=== PATIENT | female | born 1955 | race Asian ===

== ENCOUNTER → 2021-11-01 09:44 | Outpatient (CLI) | payer MEDICARE, SELFPAY ==
--- NOTE | 2021-11-01 09:53 | DI.NM.S_ITS ---
PROCEDURE: NM ROMIE PERF SPECT REST & STR Rest and exercise myocardial perfusion SPECT with gated imaging and ejection fraction RADIOPHARMACEUTICAL: 11.6 mCi Tc-99m sestamibi IV at rest and 25.1 mCi Tc-99m sestamibi IV at peak exercise. A [id number] was performed. INDICATIONS: Chest pain, unspecified TECHNIQUE: Radiopharmaceutical was injected at peak stress test, and also at rest. SPECT images were obtained. SPECT myocardial perfusion images were displayed in short axis, horizontal long axis, and vertical long axis views. Gated images were reviewed using [email or web address] software. COMPARISON: None. CARDIAC STRESS: A standard Juan Manuel treadmill exercise tolerance test was performed by the patient under the supervision of an attending staff. The patient exercised for 6 minutes and 31 seconds; 7.0 METS; functional aerobic impairment (KILO) is -3% %. Hemodynamic data: There is normal blood pressure and heart rate response to exercise stress. Patient achieved 91% of maximum predicted heart rate at peak exercise. Maximum blood pressure 160/60. Symptoms: Patient denied chest pain during exercise. EKG: No diagnostic EKG changes of ischemia; no ectopy. FINDINGS: Raw data: There is good myocardial labeling by radiotracer. No significant motion artifacts. Anwz-ic-xggju ratio is 0.29 (normal is less than 0.38 for sestamibi tracer, and less than 0.50 for thallium tracer). Left ventricle function: Gated images demonstrate normal left ventricle wall thickening. No segmental wall motion abnormality. No transient ischemic dilation; TID is 0.85 (normal less than 1.3). The left ventricle resting end-diastolic volume is 51 mL. Left ventricle stress ejection fraction is >75% ; normal values are above 45%. Myocardial perfusion: There is normal distribution of activity in the left and right ventricular myocardium. No fixed or reversible perfusion defects. IMPRESSION: 1. No evidence of exercise-induced ischemia on ECG or SPECT imaging. 2. Normal exercise capacity. 3. Normal blood pressure response to exercise Dictated by: Sanjuana Limon D.O. on 11/01/2021 at 16:23 Approved by: Sanjuana Limon M.D. on 11/01/2021 at 16:27
[2021-11-01 11:00] LABS: COVID19 -Nasal RAPID Negative (Negative)
== END ==
PROVIDERS: Family Provider Internal Medicine Geriatric Medicine; PCP Internal Medicine; Referring Provider Internal Medicine; Visit Provider Internal Medicine
DX: R07.9 Chest pain, unspecified (principal); Z20.822 Contact with and (suspected) exposure to COVID-19
CPT/HCPCS: 78452; 87635; 93017; A9502

== ENCOUNTER → 2021-11-07 15:01 | Outpatient (CLI) | payer MEDICARE, OTHER, SELFPAY | PROVIDERS: Family Provider Internal Medicine Geriatric Medicine; PCP Internal Medicine; Referring Provider Internal Medicine; Visit Provider Internal Medicine | DX: Z78.0 Asymptomatic menopausal state (principal); M85.88 Other specified disorders of bone density and structure, other site; E07.9 Disorder of thyroid, unspecified; Z82.62 Family history of osteoporosis | CPT/HCPCS: 77080 ==

== ENCOUNTER 2022-03-07 12:28 | Emergency (ER) | payer MEDICARE, SELFPAY ==
[2022-03-07 12:34] VITALS: BP 133/75; PULSE 81; RESP 14; TEMP 36.7; O2SAT 99; BMI 25.1
[2022-03-07 13:01] LABS: Add Manual Diff / Slide Review NO; Basophils Absolute Auto 0 /uL (0-100); Basophils Percent Auto 0.3 % (0-2); Eosinophils Absolute Auto 100 /uL (0-450); Eosinophils Percent Auto 0.8 % (2-4); Hematocrit 40.2 % (36-46); Hemoglobin 13.3 g/dL (12.0-16.0); Lymphocytes Absolute Auto 2200 /uL (1100-4500); Lymphocytes Percent Auto 22.7 % (25-40); Mean Corpuscular HGB Conc 33.2 % (30-36); Mean Corpuscular Hemoglobin 32.6 PG (26-34); Mean Corpuscular Volume 98.2 fL (80-100); Monocytes Absolute Auto 500 /uL (0-900); Monocytes Percent Auto 4.7 % (3-14); Neutrophils Absolute Auto 7000 /uL (1500-7000); Neutrophils Percent Auto 71.5 % (50-75); Platelet Count 262 X10^3/uL (150-400); Red Cell Distribution Width 13.4 % (11.6-14.8); White Blood Cell Count 9.8 X10^3/uL (4.5-11.0)
[2022-03-07 13:04] LABS: Alanine Aminotransferase 27 IU/L (<35); Albumin 4.4 g/dL (3.5-5.0); Albumin Globulin Ratio 1.4 (1.0-2.8); Alkaline Phosphatase 89 U/L (38-126); Aspartate Aminotransferase 52 IU/L (14-36); BUN Creatinine Ratio 22.4 (6-22); Bilirubin Total 0.9 mg/dL (0.2-1.3); Blood Urea Nitrogen 13 mg/dL (7-17); Carbon Dioxide 26 mmol/L (22-32); Chloride 107 mmol/L (98-107); Estimated Glomerular Filt Rate > 60 mL/min (>60); Globulin 3.2 g/dL (1.7-4.1); Glucose 103 mg/dL (80-110); HEMOLYSIS < 15 (0-50); Lipase 100 U/L (23-300); Sodium 139 mmol/L (137-145); Total Protein 7.6 g/dL (6.3-8.2)
--- NOTE | 2022-03-07 13:43 | ED_ITS ---
HPI - Abdominal Pain <MIKAYLA Wilks - Last Filed: 03/07/22 13:54> General Chief Complaint: Abdominal Pain Stated Complaint: Abd pain Time Seen by Provider: 03/07/22 13:11 Source: patient Mode of arrival: Ambulatory History of Present Illness HPI narrative: 66-year-old female presents to the emergency department complaining of abdominal distension and discomfort that comes and goes for the last 2 days. Patient states that she was on a latter day retreat over the weekend, 8 3 or 4 times a day and this is much greater than her usual of 1 time or 2 times a day and less quantity. Patient states her normal diet is very healthy with lots of fresh foods. She states she ate a lot of fried foods and has had abdominal bloating and discomfort in the lower part of her abdomen. She states that she had 3 bowel movements yesterday, they were all normal without blood or diarrhea. She has not had any nausea or vomiting, fever, chest pain, shortness of breath, dizziness, back pain, dysuria, headache, cough or congestion. She denies any other symptoms other than abdominal discomfort that comes and goes with bloating. She states she has not had a bowel movement today but she has gurgling in her abdomen. She states that she feels like she has a lot of stool still and she has passed some gas. Related Data Home Medications Medication Instructions Recorded Confirmed coQ10 (ubiquinol) PO 05/15/18 05/15/18 krill oil 1,000 mg-om3 130 mg-dha cap PO cap 05/15/18 05/15/18 40 mg-epa 80 sx-mi0-wgm-astax cap (Krill Oil ([place] 3 and 6)) levothyroxine 25 mcg tablet 25 mcg PO DAILY 05/15/18 05/15/18 (Levoxyl) multivitamin 1 tab PO DAILY 05/15/18 05/15/18 Previous Rx's Medication Instructions Recorded hydrocortisone 2.5 % topical 1 applictn TOP BID PRN #20 gram 05/15/18 ointment Allergies Allergy/AdvReac Type Severity Reaction Status Date / Time niacin [NIACIN] Allergy Unknown Verified 03/07/22 12:35 Review of Systems <MIKAYLA Wilks - Last Filed: 03/07/22 13:54> Review of Systems Narrative: General: denies fever, chills, malaise, sweats, fatigue Head/Neck: denies headache, neck pain, dizziness Eyes: denies visual changes, eye pain Cardio: denies chest pain, palpitations, edema Respiratory: denies dyspnea, cough, orthopnea GI: Endorses abdominal distension and bloating, denies any nausea, vomiting, or diarrhea : denies dysuria, hematuria, urinary retention, frequency or incontinence MSK: denies joint pain, muscle weakness Skin: denies rash, itching, skin lesions or other Neuro: denies numbness, tingling Patient History <MIKAYLA Wilks - Last Filed: 03/07/22 13:54> Social History Smoking Status: Never smoker Smoking Status: Never smoker alcohol intake frequency: holidays/special occasions only Substance Use Type: does not use Exam <MIKAYLA Wilks - Last Filed: 03/07/22 13:54> Narrative Exam Narrative: Independently reviewed vitals signs and nursing notes. General: cooperative, comfortable, in no acute distress, well developed and well groomed Head: symmetrical facial expressions Neck: supple, without lymphadenopathy. Eyes: pupils equal round and reactive, EOMI, conjunctiva normal Nose: nares patent, no rhinorrhea Mouth/Throat: uvula midline, moist mucus membranes Cardiovascular: regular rate and rhythm, no peripheral edema, warm extremities Respiratory: normal effort, able to speak in complete sentences, no audible wheezing, stridor, or rales. No retractions or tachypnea. GI: abdomen soft, nontender to palpation, mildly distended, no masses, no exquisite tenderness with exam, without guarding or rebound. Bowel sounds present x4 quadrants not hypo or hyper active, normal tones. No CVA tenderness MSK: moves all extremities, ambulatory w/steady gait, neurovascularly intact, no weakness Skin: brisk capillary refill, no rash, no erythema Neuro: normal speech and cognition, A&O x3, normal tone Psych: mental status is grossly normal, congruent mood, normal affect, pleasant and cooperative Initial Vital Signs Initial Vital Signs: Vital Signs Temperature 98.1 F 03/07/22 12:34 Pulse Rate 81 03/07/22 12:34 Respiratory Rate 14 03/07/22 12:34 Blood Pressure 133/75 03/07/22 12:34 Pulse Oximetry 99 03/07/22 12:34 <Jonny Navas DO - Last Filed: 03/07/22 14:02> Initial Vital Signs Initial Vital Signs: Vital Signs Temperature 98.1 F 03/07/22 12:34 Pulse Rate 81 03/07/22 12:34 Respiratory Rate 14 03/07/22 12:34 Blood Pressure 133/75 03/07/22 12:34 Pulse Oximetry 99 03/07/22 12:34 Course <MIKAYLA Wilks - Last Filed: 03/07/22 13:54> Orders Ordered: ED Orders 03/07/22 12:38 EKG-12 Lead Stat 03/07/22 12:46 Complete Blood Count AUTO DIFF Stat Comprehensive Metabolic Panel Stat Lipase Stat Vital Signs Vital signs: Vital Signs - 8 hr 03/07/22 12:34 Temperature 98.1 F Pulse Rate 81 Respiratory Rate 14 Blood Pressure 133/75 Pulse Oximetry 99 <Jonny Navas DO - Last Filed: 03/07/22 14:02> Orders Ordered: ED Orders 03/07/22 12:38 EKG-12 Lead Stat 03/07/22 12:46 Complete Blood Count AUTO DIFF Stat Comprehensive Metabolic Panel Stat Lipase Stat Vital Signs Vital signs: Vital Signs - 8 hr 03/07/22 12:34 Temperature 98.1 F Pulse Rate 81 Respiratory Rate 14 Blood Pressure 133/75 Pulse Oximetry 99 MDM - Abdominal Pain <MIKAYLA Wilks - Last Filed: 03/07/22 13:54> Lab Data Result diagrams: 03/07/22 12:46 03/07/22 12:46 Labs: Lab Results 03/07/22 03/07/22 Range/Units 12:46 12:46 WBC 9.8 (4.5-11.0) X10^3/uL RBC 4.10 (4.0-5.2) X10^6/uL Hgb 13.3 (12.0-16.0) g/dL Hct 40.2 (36-46) % MCV 98.2 (80-100) fL MCH 32.6 (26-34) PG MCHC 33.2 (30-36) % RDW 13.4 (11.6-14.8) % Plt Count 262 (150-400) X10^3/uL Neut % (Auto) 71.5 (50-75) % Lymph % (Auto) 22.7 L (25-40) % [place] % (Auto) 4.7 (3-14) % Eos % (Auto) 0.8 L (2-4) % Baso % (Auto) 0.3 (0-2) % Neut # (Auto) 7000 (3516-7539) /uL Lymph # (Auto) 2200 (4668-2358) /uL [place] # (Auto) 500 (0-900) /uL Eos # (Auto) 100 (0-450) /uL Baso # (Auto) 0 (0-100) /uL Sodium 139 (137-145) mmol/L Potassium 4.0 (3.4-5.1) mmol/L Chloride 107 (98-107) mmol/L Carbon Dioxide 26 (22-32) mmol/L BUN 13 (7-17) mg/dL Creatinine 0.58 (0.52-1.04) mg/dL Estimated GFR > 60 (>60) mL/min BUN/Creatinine Ratio 22.4 H (6-22) Glucose 103 (80-110) mg/dL Calcium 9.0 (8.4-10.2) mg/dL Total Bilirubin 0.9 (0.2-1.3) mg/dL AST 52 H (14-36) IU/L ALT 27 (<35) IU/L Alkaline Phosphatase 89 (38-126) U/L Total Protein 7.6 (6.3-8.2) g/dL Albumin 4.4 (3.5-5.0) g/dL Globulin 3.2 (1.7-4.1) g/dL Albumin/Globulin Ratio 1.4 (1.0-2.8) Lipase 100 (23-300) U/L ECG Data Interpretation: EKG independently reviewed by myself and Dr. Navas reveals normal sinus rhythm at 74 bpm with regular axis and intervals. No STEMI, ST segment changes, arrhythmia, or acute ischemic changes. MDM Narrative Medical decision making narrative: This is a 66-year-old female presents to the emergency department complaining of abdominal distension and bloating after a weekend of eating a lot more food than usual on a retreat. Patient states that she ate 4 times a day, she is not used to eating as much food, and the quality of food was poor in quality, lots of fried and processed foods. She states that her baseline is 1 meal a day and it is usually healthy with loss of fresh plans. She denies any nausea vomiting, fever, diarrhea. She states that she had 3 bowel movements yesterday, has not had a bowel movement yet today but has abdominal discomfort and bloating. She does not have any blood in her stool, denies any dysuria or flank pain. She has not had any chills, chest pain, shortness of breath. Patient has bowel tones x4 quadrants, EKG without any ST changes or arrhythmia. She is tolerating p.o. without signs of dehydration, no tachycardia, she tachypnea, she is afebrile. Patient has passed some gas this morning, states that her pain has come and gone today in her lower abdomen. This is most likely gas pain, or stool burden with peristalsis. Patient was given strict return precautions, encouraged to stay stay hydrated, increase her activity, avoid medications that would further constipate her, incorporate fresh fruits and vegetables and fiber into her diet. Patient was recommended to follow-up closely with her primary care provider, schedule her colonoscopy as she is overdue. Her lab work is unremarkable, she was nontender to palpation over her 4 quadrants her abdomen. No peritoneal signs on abdominal exam. Patient remains p.o. tolerant. Serial abdominal exam without increase in abdominal pain. Given history and exam, low suspicion for acute abdominal process, such as acute cholecystitis, pancreatitis, perforated viscus, atypical appendicitis, colitis, diverticulitis or torsion. Extensive conversation about ER return precautions and need for close follow-up. Patient is appropriate and amenable to discharge home. Vital signs are stable on repeat examination is unremarkable. Patient has been informed of results. Patient has been given strict return to ER precautions for any new or worsening symptoms. Patient understands to follow up closely with outpatient providers as instructed. Patient understands plan and agrees to discharge home. All questions and concerns answered at this time. <Jonny Navas, DO - Last Filed: 03/07/22 14:02> Lab Data Labs: Lab Results 03/07/22 03/07/22 Range/Units 12:46 12:46 WBC 9.8 (4.5-11.0) X10^3/uL RBC 4.10 (4.0-5.2) X10^6/uL Hgb 13.3 (12.0-16.0) g/dL Hct 40.2 (36-46) % MCV 98.2 (80-100) fL MCH 32.6 (26-34) PG MCHC 33.2 (30-36) % RDW 13.4 (11.6-14.8) % Plt Count 262 (150-400) X10^3/uL Neut % (Auto) 71.5 (50-75) % Lymph % (Auto) 22.7 L (25-40) % [place] % (Auto) 4.7 (3-14) % Eos % (Auto) 0.8 L (2-4) % Baso % (Auto) 0.3 (0-2) % Neut # (Auto) 7000 (0132-0009) /uL Lymph # (Auto) 2200 (5567-9546) /uL [place] # (Auto) 500 (0-900) /uL Eos # (Auto) 100 (0-450) /uL Baso # (Auto) 0 (0-100) /uL Sodium 139 (137-145) mmol/L Potassium 4.0 (3.4-5.1) mmol/L Chloride 107 (98-107) mmol/L Carbon Dioxide 26 (22-32) mmol/L BUN 13 (7-17) mg/dL Creatinine 0.58 (0.52-1.04) mg/dL Estimated GFR > 60 (>60) mL/min BUN/Creatinine Ratio 22.4 H (6-22) Glucose 103 (80-110) mg/dL Calcium 9.0 (8.4-10.2) mg/dL Total Bilirubin 0.9 (0.2-1.3) mg/dL AST 52 H (14-36) IU/L ALT 27 (<35) IU/L Alkaline Phosphatase 89 (38-126) U/L Total Protein 7.6 (6.3-8.2) g/dL Albumin 4.4 (3.5-5.0) g/dL Globulin 3.2 (1.7-4.1) g/dL Albumin/Globulin Ratio 1.4 (1.0-2.8) Lipase 100 (23-300) U/L Discharge Plan Departure Patient Disposition: Home Clinical Impression: Abdominal bloating Instructions: Avoiding Gas-producing Foods, Constipation, Gassy Foods Diet Activity Restrictions/Additional Instructions: *You have been diagnosed with abdominal distension and bloating from a change in diet and eating more food than usual. Please try and stay hydrated, active, and incorporate fresh fruits and vegetables with plenty of fiber in your diet to continue having regular step stools. Because the quality of foods that you 8 was not the same quality you are use 2, it is easy to have a lot of stool buildup in your colon and have gas pain afterwards. If you have not had a bowel movement in 1 or 2 days, it is safe to use Dulcolax or MiraLax to help soften your stool and encourage a bowel movement. If you have worsening pain, any vomiting, or unable to have any bowel movements for multiple days, please return to the emergency department for another evaluation. Otherwise please follow-up with Dr. Ward for your next colonoscopy. Thank you for trusting us with your care I hope that you feel better soon *What to do: *Please continue to take your regular medications as directed. [ ] New medication prescriptions sent to your pharmacy: [ ] [ ] New medication written as a paper prescription [ x] No new medications given *Please follow up with your primary care provider in 2-3 days, call for an appointment. Let them know you were seen in the Emergency Department and that we asked that you be seen for follow-up. We will electronically transmit a record of today's note if your PCP is in our system *If you do not have a primary care provider please contact [phone] to establish care with one of the [facility] primary care providers. *Return to Emergency Department if you should have any new, worsening or concerning symptoms, such as [fever greater than 101F, chills, worsening pain, persistent vomiting or other bothersome symptoms] Prescriptions: No Action levothyroxine [Levoxyl] 25 mcg tablet 25 mcg PO DAILY 0RF [id number]-astx [Krill Oil ([place] 3 and 6)] 1000-130(40-80) mg capsule PO 0RF coQ10 (ubiquinol) PO 0RF multivitamin tablet 1 tab PO DAILY 0RF hydrocortisone 2.5 % ointment 1 applictn TOP BID PRN (Reason: rash) Qty: 20 0RF Referrals: Dontae Ward MD [Physician] - Rosalia Blank MD [Primary Care Provider] - <Jonny Navas DO - Last Filed: 03/07/22 14:02> Cosign ED Attending Cosignature Attestation: Dr Navas Co-Sign Statement: I was available for consultation during this patient's emergency department visit. This chart is signed by myself for administrative purposes only. I did not have direct contact with this patient during this visit. They were seen independently by the APC.
== END 2022-03-07 13:46 | disposition home or self-care (01) ==
PROVIDERS: Emergency Medicine; Emergency Provider Nurse Practitioner Critical Care Medicine; Family Provider Internal Medicine Geriatric Medicine; PCP Internal Medicine
DX: R14.0 Abdominal distension (gaseous) (principal)
CPT/HCPCS: 36415; 80053; 83690; 85025; 93005; 99283

== ENCOUNTER 2022-05-27 08:29 | Emergency (ER) | payer MEDICARE, SELFPAY ==
[2022-05-27 08:46] VITALS: BP 122/72; PULSE 66; RESP 16; TEMP 36.6; O2SAT 99; BMI 23.8
--- NOTE | 2022-05-27 08:52 | DI.RAD.S_ITS ---
PROCEDURE: XR FOOT RT MIN 3V INDICATIONS: twisted while hiking/ mild swelling TECHNIQUE: 3 views of the foot were acquired. COMPARISON: [facility], CR, XR ANKLE RT MIN 3V, 05/27/2022, 8:51. FINDINGS: Bones: No fractures or dislocations. No suspicious bony lesions. Soft tissues: No tibiotalar joint effusion. Achilles tendon appears normal. IMPRESSION: No visualized acute fracture or dislocation. However, if clinical concern and/or pain persist, short interval imaging followup in 7-10 days is recommended, as occult injury cannot be definitively excluded. Dictated by: Cherrie Rogers M.D. on 05/27/2022 at 9:42 Approved by: Cherrie Rogers M.D. on 05/27/2022 at 9:42
--- NOTE | 2022-05-27 08:52 | DI.RAD.S_ITS ---
PROCEDURE: XR ANKLE RT MIN 3V INDICATIONS: twisted while hiking/ mild swelling TECHNIQUE: 3 views of the ankle were acquired. COMPARISON: None. FINDINGS: Bones: No fractures or dislocations. Ankle mortise is normally aligned. No suspicious bony lesions. Soft tissues: No tibiotalar joint effusion. Achilles tendon appears normal. IMPRESSION: No visualized acute fracture or dislocation. However, if clinical concern and/or pain persist, short interval imaging followup in 7-10 days is recommended, as occult injury cannot be definitively excluded. Dictated by: Cherrie Rogers M.D. on 05/27/2022 at 9:22 Approved by: Cherrie Rogers M.D. on 05/27/2022 at 9:42
--- NOTE | 2022-05-27 10:11 | ED_ITS ---
HPI - Extremity Injury (Lower) General Chief Complaint: Extremity Injury, Lower Stated Complaint: Twisted rt foot yesterday- hard to walk today Time Seen by Provider: 05/27/22 10:06 History of Present Illness HPI Narrative: Patient is a 67-year-old female noncontributory past medical history presenting with right foot pain. She says she slipped and fell on a rock last night. She was to walk without heart. She said her foot hurts the most. No other injury. She put some patches on there last night her foot feels better this morning. Related Data Home Medications Medication Instructions Recorded Confirmed coQ10 (ubiquinol) PO 05/15/18 05/15/18 krill oil 1,000 mg-om3 130 mg-dha cap PO 05/15/18 05/15/18 40 mg-epa 80 vo-oc4-xmx-astax cap (Krill Oil ([place] 3 and 6)) levothyroxine 25 mcg tablet 25 mcg PO DAILY 05/15/18 05/15/18 (Levoxyl) multivitamin 1 tab PO DAILY 05/15/18 05/15/18 Previous Rx's Medication Instructions Recorded hydrocortisone 2.5 % topical 1 applictn topical BID PRN rash 05/15/18 ointment #20 grams Allergies Allergy/AdvReac Type Severity Reaction Status Date / Time niacin [NIACIN] Allergy Unknown Verified 03/07/22 12:35 Review of Systems Review of Systems Narrative: GENERAL: Denies chills,fever HEENT: Denies throat pain RESPIRATORY: Denies dyspnea, cough, wheezing CARDIOVASCULAR: Denies chest pain, palpitations GASTROINTESTINAL: Denies nausea, vomiting MUSCULOSKELETAL: See HPI SKIN: No rash, no laceration, no pruritus NEUROLOGIC: Denies weakness, dizziness, headache, numbness 8 point review of systems is negative except for those stated above and HPI Patient History Social History Smoking Status: Never smoker Smoking Status: Never smoker alcohol intake frequency: holidays/special occasions only Substance Use Type: does not use Exam Initial Vital Signs Initial Vital Signs: Vital Signs Temperature 97.9 F 05/27/22 08:46 Pulse Rate 66 05/27/22 08:46 Respiratory Rate 16 05/27/22 08:46 Blood Pressure 122/72 05/27/22 08:46 Pulse Oximetry 99 05/27/22 08:46 Oxygen Delivery Method 05/27/22 08:46 GENERAL: Well-appearing, well-nourished and in no acute distress. CARDIOVASCULAR: peripheral pulses in tact, cap refill <2 sec RESPIRATORY: No respiratory distress, speaks in full sentences without difficulty EXTREMITIES: Normal range of motion, no clubbing or edema. Neurovascularly intact Right lower extremity no swelling appreciated in foot or ankle. Tender mid foot no erythema no contusion. Distal pedal pulses strong. Knee is within normal limits. Achilles tendon is intact and calf is soft. NEUROLOGICAL: Cranial nerves II through XII grossly intact. Normal gait and speech. SKIN: Warm, dry, no petechiae, no rashes or lesions. Course Orders Ordered: ED Orders 05/27/22 08:52 XR ankle RT min 3V Stat XR foot RT min 3V Stat Vital Signs Vital signs: Vital Signs - 8 hr 05/27/22 08:46 Temperature 97.9 F Pulse Rate 66 Respiratory Rate 16 Blood Pressure 122/72 Pulse Oximetry 99 Oxygen Delivery Method Room Air MDM - Extremity Injury (Lower) Imaging Data Extremity x-ray #1: Radiologist's Impression: 1955 Acct:[id number] Age/Sex: 67 / F Date of Service: 05/27/22 Loc: ED Accession Number: [id number] ?? Procedure: XR ankle RT min 3V Ordering Provider: Hollie Bolden D.O. PROCEDURE:? XR ANKLE RT MIN 3V ? INDICATIONS:? twisted while hiking/ mild swelling ? TECHNIQUE:? 3 views of the ankle were acquired.? ? COMPARISON:? None. ? FINDINGS:? ? Bones:? No fractures or dislocations.? Ankle mortise is normally aligned.? No suspicious bony lesions.? ? Soft tissues:? No tibiotalar joint effusion.? Achilles tendon appears normal.? ? ? IMPRESSION:? No visualized acute fracture or dislocation. However, if clinical concern and/or pain persist, short interval imaging followup in 7-10 days is recommended, as occult injury cannot be definitively excluded. ? Dictated by: Cherrie Rogers M.D. on 05/27/2022 at 9:22? Extremity x-ray #2: Radiologist's Impression: Signed Patient: Zuleyma Rosario MR#: [id number] : 1955 Acct:[id number] Age/Sex: 67 / F Date of Service: 05/27/22 Loc: ED Accession Number: [id number] ?? Procedure: XR foot RT min 3V Ordering Provider: Hollie Bolden D.O. PROCEDURE:? XR FOOT RT MIN 3V ? INDICATIONS:? twisted while hiking/ mild swelling ? TECHNIQUE:? 3 views of the foot were acquired.? ? COMPARISON:? [facility], CR, XR ANKLE RT MIN 3V, 05/27/2022, 8:51. ? FINDINGS:? ? Bones:? No fractures or dislocations.? No suspicious bony lesions.? ? Soft tissues:? No tibiotalar joint effusion.? Achilles tendon appears normal.? ? ? IMPRESSION:? No visualized acute fracture or dislocation. However, if clinical concern and/or pain persist, short interval imaging followup in 7-10 days is recommended, as occult injury cannot be definitively excluded. ? Dictated by: Cherrie Rogers M.D. on 05/27/2022 at 9:42 ? ? Discharge Plan Departure Patient Disposition: Home Clinical Impression: Foot sprain Instructions: Ankle Sprain Activity Restrictions/Additional Instructions: *You have been diagnosed with right foot sprain *What to do: At this time x-rays are negative. If still having pain in 7-10 days may require repeat imaging. Elevate and ice. Use crutches or walker as needed Supportive shoes such as tennis shoes. *Continue to take medications as directed Tylenol 650 mg every 4-6 hours if needed for inif-wm-kbkzzeac pain Ibuprofen/Motrin 400 mg every 6 hours if needed for huap-wc-ksnhonhp pain *Follow up with your primary care provider in 2-3 days or call [phone] *Return to ER if you should have increasing pain swelling or any new, worsening or concerning symptoms Prescriptions: No Action levothyroxine [Levoxyl] 25 mcg tablet 25 mcg PO DAILY [id number]-[id number] [Krill Oil ([place] 3 [place] 6)] 1000-130(40-80) mg capsule PO coQ10 (ubiquinol) PO multivitamin tablet 1 tab PO DAILY hydrocortisone 2.5 % ointment 1 applictn TOP BID PRN (Reason: rash) Qty: 20 0RF Referrals: Rosalia Blank MD [Primary Care Provider] - Visit Report Forms: Patient Portal/API
--- NOTE | 2022-05-27 10:25 | PC.NURSE ---
R foot [employer] intact. Wrapped with an NELIA wrap. Pt showed how to rewrap if circulation was compromised. Given crutches and training and demonstrated safe use.
== END 2022-05-27 10:26 | disposition home or self-care (01) ==
PROVIDERS: Emergency Provider Emergency Medicine; Family Provider Internal Medicine Geriatric Medicine; PCP Internal Medicine
DX: S93.601A Unspecified sprain of right foot, initial encounter (principal); W01.0XXA Fall on same level from slipping, tripping and stumbling without subsequent striking against object, initial encounter
CPT/HCPCS: 73610; 73630; 99281; 99283

== ENCOUNTER 2023-07-11 15:41 | Emergency (ER) | payer MEDICARE, SELFPAY ==
[2023-07-11] VITALS (13 sets, daily range): BP systolic 110–158; BP diastolic 58–96; PULSE 74–108; RESP 16–33; TEMP 36.9; O2SAT 93–100; BMI 21.2
--- NOTE | 2023-07-11 15:57 | DI.RAD.S_ITS ---
PROCEDURE: XR CHEST 1V INDICATIONS: Shortness of breath TECHNIQUE: One view of the chest was acquired. COMPARISON: None. FINDINGS: Surgical changes and devices: None. Lungs and pleura: Lungs are clear. No pleural effusions or pneumothorax. Mediastinum: Mediastinal contours appear normal. Heart size is mildly prominent. Bones and chest wall: No suspicious bony lesions. Overlying soft tissues appear unremarkable. IMPRESSION: Portable chest within normal limits for age. Dictated by: Cherrie Rogers M.D. on 07/11/2023 at 16:41 Approved by: Cherrie Rogers M.D. on 07/11/2023 at 16:42
[2023-07-11 16:36] LABS: Prothrombin Time 11.3 SECONDS (10.1-12.7)
[2023-07-11 16:40] LABS: Add Manual Diff / Slide Review NO; Alanine Aminotransferase 32 IU/L (<35); Albumin 4.2 g/dL (3.5-5.0); Albumin Globulin Ratio 1.2 (1.0-2.8); Alkaline Phosphatase 110 U/L (38-126); Aspartate Aminotransferase 45 IU/L (14-36); BUN Creatinine Ratio 30.2 (6-22); Basophils Absolute Auto 0 /uL (0-100); Basophils Percent Auto 0.5 % (0-2); Bilirubin Total 1.1 mg/dL (0.2-1.3); Blood Urea Nitrogen 16 mg/dL (7-17); Calcium 9.1 mg/dL (8.4-10.2); Carbon Dioxide 24 mmol/L (22-32); Chloride 102 mmol/L (98-107); Eosinophils Absolute Auto 100 /uL (0-450); Eosinophils Percent Auto 0.9 % (2-4); Estimated Glomerular Filt Rate > 60 mL/min (>60); Globulin 3.6 g/dL (1.7-4.1); Glucose 128 mg/dL (80-110); HEMOLYSIS 24 (0-50); Hematocrit 40.2 % (36-46); Hemoglobin 13.7 g/dL (12.0-16.0); Lactate (Lactic Acid) 2.5 mmol/L (0.7-2.1); Lymphocytes Absolute Auto 4000 /uL (1100-4500); Lymphocytes Percent Auto 46.8 % (25-40); Mean Corpuscular Hemoglobin 30.3 PG (26-34); Mean Corpuscular Volume 89.1 fL (80-100); Monocytes Absolute Auto 400 /uL (0-900); Neutrophils Absolute Auto 4000 /uL (1500-7000); Neutrophils Percent Auto 46.8 % (50-75); Platelet Count 278 X10^3/uL (150-400); Potassium 3.9 mmol/L (3.4-5.1); Red Blood Cell Count 4.51 X10^6/uL (4.0-5.2); Red Cell Distribution Width 13.5 % (11.6-14.8); Sodium 137 mmol/L (137-145); Total Protein 7.8 g/dL (6.3-8.2); White Blood Cell Count 8.5 X10^3/uL (4.5-11.0)
[2023-07-11 16:45] LABS: D Dimer 309 ng/ml (<500)
[2023-07-11 16:51] LABS: NT-proBNP (BNP-Adult 18+) 366 pg/mL (<125); Troponin I < 0.012 ng/mL (0.01-0.034)
[2023-07-11 18:16] LABS: Reflexed Lactate in 2 Hours Y
[2023-07-11] MEDS: SODIUM CHLORIDE 0.9% 1,000 ML 1000 ML IV (19:09)
--- NOTE | 2023-07-11 19:09 | ED.SOB ---
HPI - SOB/Dyspnea General Chief Complaint: Shortness of Breath/Dyspnea Stated Complaint: SOB Time Seen by Provider: 07/11/23 16:05 Source: patient, RN notes reviewed and old records reviewed Mode of arrival: Ambulatory Limitations: no limitations History of Present Illness HPI Narrative: 68-year-old female with history of hypothyroidism with no other reported medical issues. Patient has had shortness of breath for the past month she describes it as with exertion. She states it started after she traveled back from the [facility]. She flew there was spent 3 months and then flew back at the end of April or early May. Since then she is noticed shortness of breath but more when she does work or physically exerts herself. She states she did not know that this before she states no chest pain or pressure. She is felt more fatigued. She denies fevers or chills. She is had a mild dry cough occasionally but not persistent. No hemoptysis, no productive cough. She does not feel short of breath at rest. She denies any nausea or vomiting. She states she did have swelling during the flight both to and from the [facility] but did not persist. She states it was in both lower extremities. They were another never red hot or warm. Patient denies any issues with bowel movements. No diarrhea, constipation or black or bloody stools. No urinary symptoms. She noted the other day her heart rate was 110 at rest. She states her only medication is levothyroxine. No prior surgeries. She states she would an adverse reaction or allergy to niacin. No tobacco, no alcohol, no illicit. No prior history of blood clots for the patient or within her family. She has not appointment with Dr. Ward on the 24 of July. She did reach out to him and was referred to the ED. Related Data Home Medications Medication Instructions Recorded Confirmed multivitamin 1 tab PO DAILY 05/15/18 11/18/22 ascorbic acid (vitamin C) 1,000 mg 1 g PO Q6H 11/18/22 11/18/22 capsule vlcrmni-cocvzihwh-bqea 1 tab PO DAILY 11/18/22 11/18/22 cholecalciferol (vitamin D3) 25 25 mcg PO DAILY 11/18/22 11/18/22 mcg (1,000 unit) capsule glucosamine-chondroitin 1 tab PO DAILY 11/18/22 11/18/22 omega-3 fatty acids 1,000 mg 1,000 mg PO DAILY 11/18/22 11/18/22 capsule Previous Rx's Medication Instructions Recorded levothyroxine 25 mcg tablet 25 mcg PO DAILY #90 tabs 02/24/23 (Levoxyl) Allergies Allergy/AdvReac Type Severity Reaction Status Date / Time Iodinated Contrast Media Allergy Intermediate ITCHING Verified 07/11/23 21:27 niacin [NIACIN] Allergy Unknown Verified 11/18/22 16:08 Review of Systems Review of Systems ROS Unobtainable: All systems reviewed & are unremarkable except as noted in HPI and below Patient History Medical History Acquired hypothyroidism Chronic back pain Colon cancer screening Hearing loss Mixed hyperlipidemia Osteopenia Surgical History Anesthesia History of cataract removal with insertion of prosthetic lens Family History Father Pneumonia Mother History of heart disease Stroke Family/Other Diabetes mellitus Family/Other Ovarian cancer Social History details: 2020 ([place]), four step-children, caregiver Smoking Status: Never smoker Smoking Status: Never smoker alcohol intake frequency: holidays/special occasions only Substance Use Type: does not use Exam Narrative Exam Narrative: GENERAL: Alert and oriented x three, well-appearing female mild distress HEENT: Head normocephalic, atraumatic, EOMI, pupils reactive, face symmetric, moist mucous membranes NECK: Supple, full range of motion CARDIOVASCULAR: Regular rate and rhythm without murmurs, rubs or gallops. No JVD. No swelling bilateral lower extremities. RESPIRATORY: Breath sounds equal bilaterally, no wheezes rales or rhonchi. No tachypnea or accessory muscle use. ABDOMEN: Soft, nontender. Normoactive bowel sounds all 4 quadrants. No guarding or rebound, rigidity, no mass : No CVA tenderness EXTREMITIES: Normal range of motion, no clubbing or edema. Neurovascularly intact NEUROLOGICAL: Cranial nerves II through XII grossly intact. Moving all extremities SKIN: Warm, dry, no petechiae, no rashes or lesions. Initial Vital Signs Initial Vital Signs: Vital Signs Temperature 98.4 F 07/11/23 15:51 Pulse Rate 87 07/11/23 15:51 Respiratory Rate 16 07/11/23 15:51 Blood Pressure 131/96 H 07/11/23 15:51 Pulse Oximetry 99 07/11/23 15:51 Oxygen Delivery Method Room Air 07/11/23 15:51 Course Orders Ordered: ED Orders 07/11/23 19:27 CT angio chest PE protocol Stat 07/11/23 20:06 Troponin I Stat Discontinued Medications Albuterol (Albuterol Hfa Prepack) 1 box MISC SEEINSTR ONE Stop: 07/11/23 21:11 Last Admin: 07/11/23 21:15 Dose: 1 box Documented By: Diphenhydramine HCl (Diphenhydramine 50 Mg/Ml Vial) 50 mg IV NOW ONE Stop: 07/11/23 20:04 Last Admin: 07/11/23 20:07 Dose: 50 mg Documented By: RITA Sodium Chloride (Normal Saline 0.9%) 1,000 mls @ 1,000 mls/hr IV BOLUS ONE Stop: 07/11/23 19:33 Last Infusion: 07/11/23 20:11 Dose: 0 mls/hr Documented By: Admin: 07/11/23 19:09 Dose: 1,000 mls/hr Documented By: Methylprednisolone (Methylprednisolone 125 Mg/2 Ml Vial) 125 mg IV NOW ONE Stop: 07/11/23 20:04 Last Admin: 07/11/23 20:07 Dose: 125 mg Documented By: RITA Prednisone (Prednisone 20 Mg Prepack) 1 bottle MISC SEEINSTR ONE Stop: 07/11/23 21:11 Last Admin: 07/11/23 21:17 Dose: 1 bottle Documented By: SB Vital Signs Vital signs: Vital Signs - 8 hr 07/11/23 20:30 07/11/23 20:30 07/11/23 21:00 Pulse Rate 94 H Respiratory Rate 33 H Blood Pressure 125/61 127/58 L Pulse Oximetry 99 Oxygen Delivery Method 07/11/23 21:00 07/11/23 21:30 07/11/23 21:30 Pulse Rate 83 84 Respiratory Rate 22 22 Blood Pressure 133/62 Pulse Oximetry 97 98 Oxygen Delivery Method Room Air MDM - SOB/Dyspnea Lab Data 07/11/23 16:10 07/11/23 16:10 Labs: Lab Results 07/11/23 07/11/23 07/11/23 Range/Units 16:10 16:10 16:10 WBC 8.5 (4.5-11.0) X10^3/uL RBC 4.51 (4.0-5.2) X10^6/uL Hgb 13.7 (12.0-16.0) g/dL Hct 40.2 (36-46) % MCV 89.1 (80-100) fL MCH 30.3 (26-34) PG MCHC 34.0 (30-36) % RDW 13.5 (11.6-14.8) % Plt Count 278 (150-400) X10^3/uL Neut % (Auto) 46.8 L (50-75) % Lymph % (Auto) 46.8 H (25-40) % [place] % (Auto) 5.0 (3-14) % Eos % (Auto) 0.9 L (2-4) % Baso % (Auto) 0.5 (0-2) % Neut # (Auto) 4000 (8402-5080) /uL Lymph # (Auto) 4000 (0214-7927) /uL [place] # (Auto) 400 (0-900) /uL Eos # (Auto) 100 (0-450) /uL Baso # (Auto) 0 (0-100) /uL PT 11.3 (10.1-12.7) SECONDS INR 1.0 (0.9-1.3) D-Dimer (<500) ng/ml Sodium 137 (137-145) mmol/L Potassium 3.9 (3.4-5.1) mmol/L Chloride 102 (98-107) mmol/L Carbon Dioxide 24 (22-32) mmol/L BUN 16 (7-17) mg/dL Creatinine 0.53 (0.52-1.04) mg/dL Estimated GFR > 60 (>60) mL/min BUN/Creatinine Ratio 30.2 H (6-22) Glucose 128 H (80-110) mg/dL Lactate (0.7-2.1) mmol/L Calcium 9.1 (8.4-10.2) mg/dL Total Bilirubin 1.1 (0.2-1.3) mg/dL AST 45 H (14-36) IU/L ALT 32 (<35) IU/L Alkaline Phosphatase 110 (38-126) U/L Troponin I < 0.012 (0.01-0.034) ng/mL NT-Pro-B Natriuret Pep 366 H (<125) pg/mL Total Protein 7.8 (6.3-8.2) g/dL Albumin 4.2 (3.5-5.0) g/dL Globulin 3.6 (1.7-4.1) g/dL Albumin/Globulin Ratio 1.2 (1.0-2.8) SARS-CoV-2 (PCR) (Negative) 07/11/23 07/11/23 07/11/23 Range/Units 16:10 16:10 19:12 WBC (4.5-11.0) X10^3/uL RBC (4.0-5.2) X10^6/uL Hgb (12.0-16.0) g/dL Hct (36-46) % MCV (80-100) fL MCH (26-34) PG MCHC (30-36) % RDW (11.6-14.8) % Plt Count (150-400) X10^3/uL Neut % (Auto) (50-75) % Lymph % (Auto) (25-40) % [place] % (Auto) (3-14) % Eos % (Auto) (2-4) % Baso % (Auto) (0-2) % Neut # (Auto) (2910-8130) /uL Lymph # (Auto) (2699-4353) /uL [place] # (Auto) (0-900) /uL Eos # (Auto) (0-450) /uL Baso # (Auto) (0-100) /uL PT (10.1-12.7) SECONDS INR (0.9-1.3) D-Dimer 309 (<500) ng/ml Sodium (137-145) mmol/L Potassium (3.4-5.1) mmol/L Chloride (98-107) mmol/L Carbon Dioxide (22-32) mmol/L BUN (7-17) mg/dL Creatinine (0.52-1.04) mg/dL Estimated GFR (>60) mL/min BUN/Creatinine Ratio (6-22) Glucose (80-110) mg/dL Lactate 2.5 H (0.7-2.1) mmol/L Calcium (8.4-10.2) mg/dL Total Bilirubin (0.2-1.3) mg/dL AST (14-36) IU/L ALT (<35) IU/L Alkaline Phosphatase (38-126) U/L Troponin I (0.01-0.034) ng/mL NT-Pro-B Natriuret Pep (<125) pg/mL Total Protein (6.3-8.2) g/dL Albumin (3.5-5.0) g/dL Globulin (1.7-4.1) g/dL Albumin/Globulin Ratio (1.0-2.8) SARS-CoV-2 (PCR) Negative (Negative) 07/11/23 07/11/23 Range/Units 20:06 20:06 WBC (4.5-11.0) X10^3/uL RBC (4.0-5.2) X10^6/uL Hgb (12.0-16.0) g/dL Hct (36-46) % MCV (80-100) fL MCH (26-34) PG MCHC (30-36) % RDW (11.6-14.8) % Plt Count (150-400) X10^3/uL Neut % (Auto) (50-75) % Lymph % (Auto) (25-40) % [place] % (Auto) (3-14) % Eos % (Auto) (2-4) % Baso % (Auto) (0-2) % Neut # (Auto) (8947-0428) /uL Lymph # (Auto) (3716-8489) /uL [place] # (Auto) (0-900) /uL Eos # (Auto) (0-450) /uL Baso # (Auto) (0-100) /uL PT (10.1-12.7) SECONDS INR (0.9-1.3) D-Dimer (<500) ng/ml Sodium (137-145) mmol/L Potassium (3.4-5.1) mmol/L Chloride (98-107) mmol/L Carbon Dioxide (22-32) mmol/L BUN (7-17) mg/dL Creatinine (0.52-1.04) mg/dL Estimated GFR (>60) mL/min BUN/Creatinine Ratio (6-22) Glucose (80-110) mg/dL Lactate 1.4 (0.7-2.1) mmol/L Calcium (8.4-10.2) mg/dL Total Bilirubin (0.2-1.3) mg/dL AST (14-36) IU/L ALT (<35) IU/L Alkaline Phosphatase (38-126) U/L Troponin I < 0.012 (0.01-0.034) ng/mL NT-Pro-B Natriuret Pep (<125) pg/mL Total Protein (6.3-8.2) g/dL Albumin (3.5-5.0) g/dL Globulin (1.7-4.1) g/dL Albumin/Globulin Ratio (1.0-2.8) SARS-CoV-2 (PCR) (Negative) Imaging Data Chest x-ray: Radiologist's Impression: [address] [address] XRay Report Signed Patient: Zuleyma Rosario MR#: [id number] : 1955 Acct:[id number] Age/Sex: 68 / F Date of Service: 07/11/23 Loc: ED Accession Number: [id number] ?? Procedure: XR chest 1V Ordering Provider: Roosevelt Das D.O. PROCEDURE:? XR CHEST 1V ? INDICATIONS:? Shortness of breath ? TECHNIQUE:? One view of the chest was acquired.? ? COMPARISON:? None. ? FINDINGS:? ? Surgical changes and devices:? None.? ? Lungs and pleura:? Lungs are clear.? No pleural effusions or pneumothorax.? ? Mediastinum:? Mediastinal contours appear normal.? Heart size is mildly prominent. ? Bones and chest wall:? No suspicious bony lesions.? Overlying soft tissues appear unremarkable.? ? ? IMPRESSION:? Portable chest within normal limits for age. ? ? Dictated by: Cherrie Rogers M.D. on 07/11/2023 at 16:41 ? ? Approved by: Cherrie Rogers M.D. on 07/11/2023 at 16:42?? CT scan - chest: Radiologist's Impression: AbrahamZuleyma Darling??68??F??1955 ? Allergy/Adv: niacin Close Chest CTA (Signed) Hubert Hernández - 07/11/23 Chest X-Ray (Signed) Cherrie Rogers - 07/11/23 Foot X-Ray (Signed) Hudson Rogersley - 05/27/22 Ankle X-Ray (Signed) Hudson Rogersley - 05/27/22 Bone Densitometry 11/07/21 Myocardial Perfusion Scan Nuc Med (Signed) DenicesevenalisaSanjuana - 11/01/21 [place] [address] CT Scan Report Signed Patient: Zuleyma Rosario MR#: [id number] : 1955 Acct:[id number] Age/Sex: 68 / F Date of Service: 07/11/23 Loc: ED Accession Number: [id number] ?? Procedure: CT angio chest PE protocol Ordering Provider: Ginger Boyd D.O. PROCEDURE:? CT ANGIO CHEST PE PROTOCOL ? INDICATIONS:? sob w/ exertion, flew to/back from [facility] ? TECHNIQUE:? After the administration of intravenous contrast, 2 mm thick sections acquired from the pulmonary apices to the posterior costophrenic angles.? 3-dimensional maximum intensity projection (MIP) coronal and sagittal reformats were then acquired through the thorax.? For radiation dose reduction, the following was used:? automated exposure control, adjustment of mA and/or kV according to patient size.? ? COMPARISON:? None. ? FINDINGS:? Image quality:? Excellent.? ? Pulmonary arteries:? Pulmonary arteries are normal in size, and demonstrate no intraluminal filling defects to suggest central pulmonary embolism.? ? Lungs and pleura:? Lungs are clear.? No pleural effusions or pneumothorax.? Central and peripheral airways are patent.? Mosaic attenuation of the lungs. ? Mediastinum:? Heart size is normal, without pericardial effusion.? No mediastinal or hilar adenopathy.? Thoracic aorta is normal in caliber and enhancement.? Esophagus is normal in caliber, without hiatal hernia.? Mildly heterogeneous soft tissue within the anterior mediastinum, with prominent lymph nodes, which are not enlarged by size criteria. ? Bones and chest wall:? No suspicious bony lesions.? Ribs and thoracic spine appear intact throughout.? Thyroid gland is mildly heterogeneous, and contains coarsened calcifications.? No axillary or supraclavicular adenopathy.? ? Abdomen:? Visualized upper abdominal solid organs appear normal in the early arterial phase of enhancement.? ? IMPRESSION:? No pulmonary embolus. ? Mosaic attenuation of the lungs, suggestive of air trapping in the setting of small airways disease. ? Mildly heterogeneous soft tissue within the anterior mediastinum, with adjacent prominent lymph nodes.? Recommend follow-up in [address] with contrast to exclude a thymic disorder. ? Heterogeneous thyroid, which may indicate underlying thyroiditis.? Consider thyroid panel this is a new diagnosis.? ? ? Dictated by: Hubert Hernández M.D. on 07/11/2023 at 20:44 ? ? Approved by: Hubert Hernández M.D. on 07/11/2023 at 20:48?? ECG Data Attestation: I personally reviewed and interpreted this ECG as follows: Interpretation: Appears to be atrial rhythm rate of 79 QRS is 70 QTC 477. Patient has prior from 03/07/2022 ST segments actually appear very similar with T-wave inversions 3 AVF as well as V1 through V3. No ST elevation. Patient appears to have either PACs or atrial ectopic rhythm. EKG2. Sinus rhythm with premature atrial complexes rate of 94 DC 140 QRS is 68 QTC of 477. No acute ST changes appreciated. MDM Narrative Medical decision making narrative: Patient's labs including CBC, coags, CMP, troponin are all negative dimer is negative, BNP is only 366. AST is 45 lactate was elevated slightly at 2.5. Chest x-ray was negative. Patient's vitals are appropriate she is not been hypoxic or tachycardic. Does have a somewhat atypical rhythm she has ST irregularities but appears those are not new but rhythm does appear different from prior. Discussed with patient even though she has negative D-dimer has somewhat high-risk history. Plan for repeat lactate and troponin, EKG, fluids and CT angio after discussion of risks versus benefit with patient. Repeat troponin is negative. Repeat lactate improved. No acute EKG changes. Repeat lactate is improved repeat troponin is negative right. Patient's CT angio showed no pulmonary emboli, lungs are clear no pericardial effusion no major changes to the aorta there is some mildly heterogeneous tissue and prominent lymph nodes in the anterior mediastinum recommended a CT chest to exclude thymic disorder within 3 months and some mosaic attenuation lung suggesting air trapping in setting of small airway disease. Heterogeneous thyroid could have underlying thyroiditis. Patient does take thyroid medications referred back to her primary care for follow up for this imaging. She is clear on her examination but we will give dose of albuterol short course of steroid to see if this is helpful. Patient CT findings were reviewed. As well as her labs. Patient has never been a smoker, she does have lot of family members have asthma. She has not had a lot of smoke exposure or high-risk changes. She is on thyroid medication. Discussed with patient will give a short course of steroid and inhaler she is not wheezy but see if this is helpful. Discussed she probably should still have cardiac workup or lung workup if symptoms are persisting. We will also refer her back for follow-up for the CT findings from today. Reviewed all this with the patient she feels comfortable with this plan. Discharge Plan Departure Patient Disposition: Home Clinical Impression: Arrhythmia, Dyspnea Activity Restrictions/Additional Instructions: Your imaging today does show some potential changes to the lungs that could be small airway disease and can be causing you do feel short of breath, call up with follow up with Dr. Ward to see about further workup. There is also some changes to your thyroid and area area where your thymus would be. Recommended he follow up CT chest with contrast within 3 months and discussed with Dr. Ward if your thyroid changes are expected findings. Take prednisone 2 tablets daily x5 days. You can try albuterol 1-2 puffs every 4 hours as needed for shortness of breath. Please return for new or worsening shortness of breath, chest pain, lightheadedness or passing out, coughing up blood, new swelling of her extremities or other new or concerning changes. Prescriptions: No Action multivitamin tablet 1 tab PO DAILY levothyroxine [Levoxyl] 25 mcg tablet 25 mcg PO DAILY Qty: 90 3RF cholecalciferol (vitamin D3) 25 mcg (1,000 unit) capsule 25 mcg PO DAILY ascorbic acid (vitamin C) 1,000 mg capsule 1 g PO Q6H glucosamine-chondroitin 1 tab PO DAILY omega-3 fatty acids 1,000 mg capsule 1,000 mg PO DAILY zqqwlwu-gytrvkjyn-iraz 1 tab PO DAILY Referrals: Dontae Ward MD [Primary Care Provider] - Stand Alone Forms: Patient Portal/API
--- NOTE | 2023-07-11 19:27 | DI.CT.S_ITS ---
PROCEDURE: CT ANGIO CHEST PE PROTOCOL INDICATIONS: sob w/ exertion, flew to/back from [facility] TECHNIQUE: After the administration of intravenous contrast, 2 mm thick sections acquired from the pulmonary apices to the posterior costophrenic angles. 3-dimensional maximum intensity projection (MIP) coronal and sagittal reformats were then acquired through the thorax. For radiation dose reduction, the following was used: automated exposure control, adjustment of mA and/or kV according to patient size. COMPARISON: None. FINDINGS: Image quality: Excellent. Pulmonary arteries: Pulmonary arteries are normal in size, and demonstrate no intraluminal filling defects to suggest central pulmonary embolism. Lungs and pleura: Lungs are clear. No pleural effusions or pneumothorax. Central and peripheral airways are patent. Mosaic attenuation of the lungs. Mediastinum: Heart size is normal, without pericardial effusion. No mediastinal or hilar adenopathy. Thoracic aorta is normal in caliber and enhancement. Esophagus is normal in caliber, without hiatal hernia. Mildly heterogeneous soft tissue within the anterior mediastinum, with prominent lymph nodes, which are not enlarged by size criteria. Bones and chest wall: No suspicious bony lesions. Ribs and thoracic spine appear intact throughout. Thyroid gland is mildly heterogeneous, and contains coarsened calcifications. No axillary or supraclavicular adenopathy. Abdomen: Visualized upper abdominal solid organs appear normal in the early arterial phase of enhancement. IMPRESSION: No pulmonary embolus. Mosaic attenuation of the lungs, suggestive of air trapping in the setting of small airways disease. Mildly heterogeneous soft tissue within the anterior mediastinum, with adjacent prominent lymph nodes. Recommend follow-up in [address] with contrast to exclude a thymic disorder. Heterogeneous thyroid, which may indicate underlying thyroiditis. Consider thyroid panel this is a new diagnosis. Dictated by: Hubert Hernández M.D. on 07/11/2023 at 20:44 Approved by: Hubert Hernández M.D. on 07/11/2023 at 20:48
[2023-07-11 19:37] LABS: COVID19 -Nasal RAPID Negative (Negative)
[2023-07-11] MEDS: methylPREDNISolone 125 MG/2 ML VIAL IV (20:07)
[2023-07-11] MEDS: diphenhydrAMINE 50 MG/ML VIAL IV (20:07)
--- NOTE | 2023-07-11 20:10 | PC.NURSE ---
2005: Pt reports being itchy on her chest and neck after coming back from CT with contrast. Denies any increased work of breathing, but states, I feel I have to cough more. Provider made aware and new orders given as per MAR.
[2023-07-11 20:30] LABS: Lactate 2HR (Lactic Acid Rflx) 1.4 mmol/L (0.7-2.1)
[2023-07-11 20:42] LABS: Troponin I < 0.012 ng/mL (0.01-0.034)
[2023-07-11] MEDS: ALBUTEROL HFA PREPACK 1 BOX MISC (21:15)
[2023-07-11] MEDS: predniSONE 20 MG PREPACK 1 BOTTLE MISC (21:17)
== END 2023-07-11 21:41 | disposition home or self-care (01) ==
PROVIDERS: Emergency Medicine; Emergency Provider Emergency Medicine; Family Provider Internal Medicine Geriatric Medicine; PCP Internal Medicine
DX: I49.9 Cardiac arrhythmia, unspecified (principal); R06.00 Dyspnea, unspecified; Z20.822 Contact with and (suspected) exposure to COVID-19
CPT/HCPCS: 36415; 71045; 71275; 80053; 83605; 83880; 84484; 85025; 85379; 85610; 87635; 93005; 96361; 96374; 96375; 99284; C9803; J1200; J2930; Q9967

== ENCOUNTER → 2023-07-24 16:23 | Outpatient (CLI) | payer MEDICARE, SELFPAY ==
[2023-07-24 18:54] LABS: TSH w/ Reflex to FT4 < 0.02 uIU/mL (0.47-4.68)
[2023-07-24 20:28] LABS: Free T4, Direct Thyroxine 3.46 ng/dL (0.78-2.19)
== END ==
PROVIDERS: Family Provider Internal Medicine Geriatric Medicine; PCP Internal Medicine; Referring Provider Internal Medicine; Visit Provider Internal Medicine
DX: E03.9 Hypothyroidism, unspecified (principal)
CPT/HCPCS: 84439; 84443

== ENCOUNTER → 2023-08-07 14:18 | Outpatient (CLI) | payer MEDICARE, SELFPAY | PROVIDERS: Family Provider Internal Medicine Geriatric Medicine; PCP Internal Medicine; Referring Provider Internal Medicine; Visit Provider Internal Medicine | DX: R06.02 Shortness of breath (principal); Z86.16 Personal history of COVID-19; J98.8 Other specified respiratory disorders | CPT/HCPCS: 94060; 94726; 94729 ==

== ENCOUNTER → 2023-09-08 10:58 | Outpatient (CLI) | payer MEDICARE, SELFPAY ==
[2023-09-08 12:39] LABS: TSH w/ Reflex to FT4 < 0.02 uIU/mL (0.47-4.68)
[2023-09-08 19:01] LABS: Free T4, Direct Thyroxine 2.65 ng/dL (0.78-2.19)
== END ==
PROVIDERS: Family Provider Internal Medicine Geriatric Medicine; PCP Internal Medicine; Referring Provider Internal Medicine; Visit Provider Internal Medicine
DX: E03.9 Hypothyroidism, unspecified (principal)
CPT/HCPCS: 36415; 84439; 84443

== ENCOUNTER → 2023-10-27 09:07 | Outpatient (CLI) | payer MEDICARE, SELFPAY ==
[2023-10-27 20:56] LABS: Free T3, Triiodothyronine Free 7.91 pg/mL (2.77-5.27); Free T4, Direct Thyroxine 2.68 ng/dL (0.78-2.19)
[2023-10-27 21:22] LABS: Thyroid Stimulating Hormone < 0.015 uIU/mL (0.47-4.68)
== END ==
PROVIDERS: Family Provider Internal Medicine Geriatric Medicine; PCP Internal Medicine; Referring Provider Internal Medicine; Visit Provider Internal Medicine
DX: E05.90 Thyrotoxicosis, unspecified without thyrotoxic crisis or storm (principal); E03.9 Hypothyroidism, unspecified
CPT/HCPCS: 36415; 84439; 84443; 84479; 84481

== ENCOUNTER → 2023-12-01 10:54 | Outpatient (CLI) | payer OTHER, SELFPAY ==
--- NOTE | 2023-12-01 10:59 | DI.MG.S_ITS ---
BILATERAL DIGITAL SCREENING MAMMOGRAM 3D/2D WITH CAD: 12/01/2023 CLINICAL: Routine screening. Comparison is made to exams dated: 11/27/2022 mammogram, 07/19/2021 mammogram - [facility], and 09/11/2020 mammogram - [facility]. Both breasts are heterogeneously dense, which may obscure small masses (category c / 51-75% glandular tissue). Current study was also evaluated with a Computer Aided Detection (CAD) system. No significant masses, calcifications, or other findings are seen in either breast. There has been no significant interval change. IMPRESSION: NEGATIVE There is no mammographic evidence of malignancy. A 1 year screening mammogram is recommended. Based on the Tyrer Cuzick model (a risk assessment model) the patient's lifetime risk is 10.1% and her 10 year risk is 5.4%. According to the ACR, ACS, and NCCN guidelines, an annual breast MRI exam along with mammogram is recommended if the patient's lifetime risk is 20% or greater. This exam was interpreted at Station ID: [id number]. NOTE: For mammograms, a report in lay terms will be sent to the patient. Approximately 15% of breast malignancies will not be visualized mammographically. In the management of a palpable breast mass, a negative mammogram must not discourage biopsy of a clinically suspicious lesion. Electronically Signed By: Jurgen diehl/nghia:12/01/2023 18:55:20 letter sent: Normal Exam ACR BI-RADS Category 1: Negative [id number]
== END ==
PROVIDERS: Family Provider Internal Medicine Geriatric Medicine; PCP Internal Medicine; Referring Provider Internal Medicine; Visit Provider Internal Medicine
DX: Z12.31 Encounter for screening mammogram for malignant neoplasm of breast (principal); R92.333 Mammographic heterogeneous density, bilateral breasts
CPT/HCPCS: 77063; 77067

== ENCOUNTER → 2024-02-12 09:37 | Outpatient (CLI) | payer MEDICARE, SELFPAY ==
[2024-02-12 10:24] LABS: Cholesterol 248 mg/dL (140-199); HDL Cholesterol 84 mg/dL (40-60); LDL Cholesterol Calculated 147 mg/dL (<100); Triglycerides 84 mg/dL (35-150)
[2024-02-12 10:40] LABS: Free T3, Triiodothyronine Free 4.04 pg/mL (2.77-5.27)
[2024-02-12 10:53] LABS: TSH w/ Reflex to FT4 < 0.02 uIU/mL (0.47-4.68)
[2024-02-13 08:10] LABS: Thyroid Peroxidase Antibodies 21 IU/mL (0-34)
[2024-02-14 16:09] LABS: Thyroid Stimulating Immunoglob 2.45 IU/L (0.00-0.55)
== END ==
PROVIDERS: Family Provider Internal Medicine Geriatric Medicine; PCP Internal Medicine; Referring Provider Internal Medicine; Visit Provider Internal Medicine
DX: E78.2 Mixed hyperlipidemia (principal); E03.9 Hypothyroidism, unspecified; E05.90 Thyrotoxicosis, unspecified without thyrotoxic crisis or storm
CPT/HCPCS: 36415; 80061; 84439; 84443; 84445; 84479; 84481; 86376

== ENCOUNTER → 2024-04-29 14:33 | Outpatient (CLI) | payer MEDICARE, SELFPAY ==
[2024-04-29 16:46] LABS: Free T3, Triiodothyronine Free 3.52 pg/mL (2.77-5.27); Free T4, Direct Thyroxine 1.11 ng/dL (0.78-2.19); Triiodothryronine T3 Uptake 29.9 % (23.5-40.5)
[2024-04-29 16:59] LABS: Thyroid Stimulating Hormone < 0.015 uIU/mL (0.47-4.68)
== END ==
PROVIDERS: Family Provider Internal Medicine Geriatric Medicine; PCP Internal Medicine; Referring Provider Internal Medicine; Visit Provider Internal Medicine
DX: E05.90 Thyrotoxicosis, unspecified without thyrotoxic crisis or storm (principal)
CPT/HCPCS: 36415; 84439; 84443; 84479; 84481

== ENCOUNTER → 2024-07-26 07:58 | Outpatient (CLI) | payer MEDICARE, SELFPAY ==
[2024-07-26 11:04] LABS: Free T3, Triiodothyronine Free 3.41 pg/mL (2.77-5.27); Free T4, Direct Thyroxine 0.97 ng/dL (0.78-2.19); Triiodothryronine T3 Uptake 31.4 % (23.5-40.5)
[2024-07-26 11:17] LABS: Thyroid Stimulating Hormone 1.39 uIU/mL (0.47-4.68)
== END ==
PROVIDERS: Family Provider Internal Medicine Geriatric Medicine; PCP Internal Medicine; Referring Provider Internal Medicine; Visit Provider Internal Medicine
DX: E05.00 Thyrotoxicosis with diffuse goiter without thyrotoxic crisis or storm (principal); E05.90 Thyrotoxicosis, unspecified without thyrotoxic crisis or storm; E03.9 Hypothyroidism, unspecified
CPT/HCPCS: 36415; 84439; 84443; 84479; 84481

== ENCOUNTER → 2024-10-21 09:04 | Outpatient (CLI) | payer MEDICARE, SELFPAY ==
[2024-10-21 10:16] LABS: Aspartate Aminotransferase 33 IU/L (14-36); BUN Creatinine Ratio 20.3 (6-22); Blood Urea Nitrogen 14 mg/dL (7-17); Calcium 9.5 mg/dL (8.4-10.2); Carbon Dioxide 28 mmol/L (22-32); Chloride 101 mmol/L (98-107); Cholesterol 238 mg/dL (140-199); Estimated Glomerular Filt Rate > 60 mL/min (>60); Glucose 94 mg/dL (80-110); HDL Cholesterol 78 mg/dL (40-60); HEMOLYSIS < 15 (0-50); LDL Cholesterol Calculated 142 mg/dL (<100); Potassium 4.3 mmol/L (3.4-5.1); Sodium 135 mmol/L (137-145); Triglycerides 90 mg/dL (35-150)
[2024-10-21 10:38] LABS: Free T3, Triiodothyronine Free 3.29 pg/mL (2.77-5.27); Free T4, Direct Thyroxine 1.27 ng/dL (0.78-2.19); T4 Total Thyroxine 9.42 ug/dL (5.5-11.0)
[2024-10-21 10:51] LABS: Thyroid Stimulating Hormone 1.27 uIU/mL (0.47-4.68)
== END ==
PROVIDERS: Family Provider Internal Medicine Geriatric Medicine; PCP Internal Medicine; Referring Provider Internal Medicine; Visit Provider Internal Medicine
DX: E05.00 Thyrotoxicosis with diffuse goiter without thyrotoxic crisis or storm (principal); E05.90 Thyrotoxicosis, unspecified without thyrotoxic crisis or storm; E78.2 Mixed hyperlipidemia
CPT/HCPCS: 36415; 80048; 80061; 84436; 84439; 84443; 84450; 84481

== ENCOUNTER → 2025-04-11 07:58 | Outpatient (CLI) | payer MEDICARE, SELFPAY ==
--- NOTE | 2025-04-11 08:01 | DI.MG.S_ITS ---
MM screening mammo BI: 04/11/2025. BI-RADS: 1 CLINICAL: 69-year old female for bilateral screening mammogram. Tyrer-Cuzick lifetime risk of 4.4%. No personal or first-degree family history of breast cancer. PRIOR EXAMS 12/01/2023, 11/27/2022, 07/19/2021, 11/15/2016, 10/25/2016, 10/24/2015. MAMMOGRAPHY TECHNIQUE: 2D and 3D (tomosynthesis) digital mammographic views obtained, with additional images as needed for full coverage. Current study was also evaluated with a Computer Aided Detection (CAD) system. DENSITY C. The breasts are heterogeneously dense, which may obscure small masses. MAMMOGRAPHY FINDINGS Bilateral: No suspicious mass, asymmetry, microcalcification, or other abnormality seen. IMPRESSION: * No evidence of malignancy. RECOMMENDATIONS Bilateral * Annual screening mammography. OVERALL ASSESSMENT CATEGORY BI-RADS-1: Negative. The [employer] recommends annual screening mammography beginning at age 40 for women with average risk of breast cancer. ELECTRONICALLY SIGNED: Jurgen Tovar M.D. on 04/11/2025 at 03:06:26 PM PT Interpreting Station ID: [id number]
== END ==
LOC: MAMMO 08:00
PROVIDERS: Family Provider Internal Medicine Geriatric Medicine; PCP Internal Medicine; Referring Provider Internal Medicine; Visit Provider Internal Medicine
DX: Z12.31 Encounter for screening mammogram for malignant neoplasm of breast (principal); R92.333 Mammographic heterogeneous density, bilateral breasts
CPT/HCPCS: 77063; 77067

== ENCOUNTER → 2025-07-26 13:48 | Outpatient (CLI) | payer MEDICARE, SELFPAY ==
[2025-07-26 17:00] LABS: Influenza A - CEPHEID Flu A NEGATIVE (NEGATIVE); Influenza B - CEPHEID Flu B NEGATIVE (NEGATIVE)
[2025-07-26 17:04] LABS: COVID-19 CEPHEID 4-PLEX PCR Negative (Negative)
== END ==
PROVIDERS: Family Provider Internal Medicine Geriatric Medicine; PCP Internal Medicine; Visit Provider Chiropractor
DX: R05.1 Acute cough (principal); J02.9 Acute pharyngitis, unspecified
CPT/HCPCS: 87070; 87637

== ENCOUNTER → 2025-08-22 14:49 | Outpatient (CLI) | payer MEDICARE, SELFPAY ==
[2025-08-22 15:10] LABS: Hematocrit 39.2 % (36-46); Hemoglobin 13.2 g/dL (12.0-16.0); Mean Corpuscular HGB Conc 33.6 % (30-36); Mean Corpuscular Hemoglobin 32.4 PG (26-34); Mean Corpuscular Volume 96.4 fL (80-100); Platelet Count 258 X10^3/uL (150-400)
[2025-08-22 15:41] LABS: Alanine Aminotransferase 11 IU/L (<35); Albumin 4.3 g/dL (3.5-5.0); Albumin Globulin Ratio 1.4 (1.0-2.8); Alkaline Phosphatase 67 U/L (38-126); Blood Urea Nitrogen 14 mg/dL (7-17); Calcium 9.5 mg/dL (8.4-10.2); Carbon Dioxide 26 mmol/L (22-32); Chloride 104 mmol/L (98-107); Estimated Glomerular Filt Rate > 60 mL/min (>60); Globulin 3.0 g/dL (1.7-4.1); Glucose 93 mg/dL (70-99); HEMOLYSIS < 15 (0-50); Potassium 3.6 mmol/L (3.4-5.1); Sodium 139 mmol/L (137-145); Total Protein 7.3 g/dL (6.3-8.2)
[2025-08-22 20:48] LABS: TSH w/ Reflex to FT4 1.27 uIU/mL (0.47-4.68)
== END ==
PROVIDERS: Family Provider Internal Medicine Geriatric Medicine; PCP Internal Medicine; Referring Provider Internal Medicine; Visit Provider Internal Medicine
DX: R00.2 Palpitations (principal); E05.90 Thyrotoxicosis, unspecified without thyrotoxic crisis or storm
CPT/HCPCS: 36415; 80053; 84443; 85027